=== PATIENT | male | born 1985 | race Two or more races ===

== ENCOUNTER 2019-09-07 18:20 | Outpatient (CLI) | payer OTHER ==
[~2019-09-07 18:20] MED LIST: CEFADROXIL500 MG PO; ORASEP SPRAY30 ML PO
== END 2019-09-07 18:55 | disposition home or self-care (01) ==
LOC: LAB 18:20
DX: J11.1 Influenza due to unidentified influenza virus with other respiratory manifestations (principal); J20.0 Acute bronchitis due to Mycoplasma pneumoniae